=== PATIENT | female | born 1955 | race Caucasian/White ===

== ENCOUNTER 2020-02-08 07:48 | Outpatient (CLI) | payer MEDICARE, OTHER ==
--- NOTE | 2020-02-08 08:17 | ULT ---
GALLBLADDER ULTRASOUND: HISTORY: Right upper quadrant abdominal pain FINDINGS: The liver demonstrates increased echogenicity without focal mass or intrahepatic biliary ductal dilat ation. No gallstones, gallbladder wall thickening or pericholecystic fluid are seen. The pancreas is obscured by overlying bowel gas. No right-sided hydronephrosis is seen. The common duct [id number] in diameter. No free fluid is seen in the Edwards's pouch. IMPRESSION: 1. Fatty liver 2. No evidence of cholelithiasis
== END 2020-02-08 07:49 | disposition home or self-care (01) ==
LOC: SCSULT 07:48
PROVIDERS: ATTEND Family Medicine
DX: R10.11 Right upper quadrant pain (principal); K76.0 Fatty (change of) liver, not elsewhere classified
CPT/HCPCS: 76705